=== PATIENT | female | born 1975 | race Hispanic/Latino ===

== ENCOUNTER 2019-10-16 00:37 | Emergency (ER) | payer SELFPAY ==
[~2019-10-16] VITALS: Ht 160 cm; Wt 83.9 kg
--- NOTE | 2019-10-16 01:13 | Emergency Department Note ---
History of Present Illnes History of Present Illness Chief Complaint: rash on legs History of Present Illness This is a 44 year old female, with a history of hyperlipidemia, hypothyroidism and depression who presents with the onset of petechiae of the bilateral lower extremities that she noticed last night at 5 PM. She denies any pain in the legs no pruritus no nausea, vomiting, fever, chills, dysuria, or abdominal pain. Patient denies any previous history of similar rash. The only new medication she has been taking his doxycycline 100 mg twice a day that she started on 09/21/2019, but is mainly been taking it once a day, therefore she is still taking the medication. She states that this was prescribe her [employer] after inflammation was found on a Pap smear. Patient denies taking any aspirin, Motrin, or other aspirin containing products. She denies any epistaxis, gingival bleeding, or excessively heavy menses. She has irregular periods. There is no personal or family history of bleeding disorders. Historian: Patient Arrival Mode: Car History limited by: language barrier Marketing Production Coordinator Required: Yes (Addy Chaves RN graciously translated) Onset (how long ago): hour(s) (8) Location: BLE on the anterior tibial area, and around ankles; Quality: not painful Radiation: Reports non-radiation Severity: mild Onset quality: sudden Duration (how long): hour(s) (8) Timing of current episode: constant Progression: unchanged Chronicity: new Context: Reports new medications (Doxycycline started on 09/21/2019, for "in flammaiton of the uterus. It was prescribed bid x 14 days, but she has been taking it daily.); Denies recent illness, Denies trauma/injury Relieving factors: none Exacerbating factors: none Associated symptoms: Reports denies other symptoms, Reports rash (see HPI); Denies chest pain, Denies cough, Denies fever/chills, Denies malaise, Denies nausea/vomiting, Denies shortness of breath (all) Treatments prior to arrival: none Risk factors: taking new antibiotic Past Medical/Family History Physician Review I have reviewed the patient's past medical and family history. Any updates have been documented here. Past Medical History Recent Fever: No Clinical Suspicion of Infectio: No New/Unexplained Change in Ment: No Past Medical History: Hypothyroidism, Depression, Hyperlipedemia Past Surgical History: None Social History Smoking Cessation: Never Smoker Alcohol Use: None Any Illegal Drug Use: No TB Exposure/Symptoms: No Physically hurt or threatened: No Family History Family history of heart diseas: No Other Any Pre-Existing Lines (PICC,: No Is patient up to date on immun: No Review of Systems Review of Systems Constitutional: Reports no symptoms; Denies chills, Denies fever Cardiovascular: Reports no symptoms Respiratory: Reports no symptoms Gastrointestinal: Reports no symptoms; Denies abdominal pain, Denies diarrhea, Denies nausea, Denies vomiting Genitourinary: Reports no symptoms Musculoskeletal: Reports no symptoms; Denies muscle pain, Denies muscle stiffness Integumentary: Reports rash (petechial rash on BLE) Neurological: Denies numbness, Denies paresthesia, Denies tingling Psychological: Reports no symptoms Hematological/Lymphatic: Reports no symptoms Review of other systems: All other systems negative Physical Exam Related Data Allergies: Coded Allergies: No Known Allergies (Unverified , 10/16/19) Vital signs reviewed: Yes Physical Exam CONSTITUTIONAL Constitutional: Present well-developed, Present well-nourished, Present obese HENT HENT: Present normocephalic, Present atraumatic, Present oropharynx clear/moist, Present nose normal; Absent nasal congestion, Absent rhinorrhea HENT L/R: Present left ext ear normal, Present right ext ear normal EYES Eyes: Reports PERRL, Reports conjunctivae normal NECK Neck: Present ROM normal, Present supple; Absent cervical adenopathy PULMONARY Pulmonary: Present effort normal, Present breath sounds normal CARDIOVASCULAR Cardiovascular: Present regular rhythm, Present heart sounds normal, Present capillary refill normal, Present normal rate; Absent murmur GASTROINTESTINAL Abdominal: Present soft, Present nontender, Present bowel sounds normal, Present other (no HSM) GENITOURINARY Genitourinary: Present exam deferred SKIN Skin: Present warm, Present dry, Present rash (Petechiae on BLE, primarily on bilateral anterior tibial area and around ankles.) MUSCULOSKELETAL Musculoskeletal: Present ROM normal NEUROLOGICAL Neurological: Present alert, Present oriented x 3 PSYCHOLOGICAL Psychological: Present mood/affect normal Results Laboratory Laboratory UA - neg except for avinash -small, blo - neg, pro - trace, marybel - tr; UPT - negative; CBC - nl, including normal platelets, no anemia; CMP - nl except for glucose = 125 mg/dl; Lab results reviewed: Yes Assessment & Plan Medical Decision Making MDM STOP taking the Doxycycline, as it may have caused a skin condition called "Vasculitis." - Take the Prednisone, as directed - Follow-up with your PCP, this week, regarding this rash, to see that it is improving. *You blood sugar was a bit high in the ED, and it is important that you limit your carbohydrate intake, especially while you are taking the Prednisone, as it can also increase your blood sugar. - Restrict intake of candy, sweets, juices, breads, pastas, potatoes and tortillas, as all of these increase your blood sugar. Assessment & Plan Final Impression: (1) Vasculitis limited to the skin, unspecified (2) Rash (3) Hyperlipidemia (4) Hypothyroidism Depart Disposition: HOME, SELF-jail Meds Active Scripts Prednisone (PREDNISONE) 20 Mg Tab, 20 MG PO DAILY for rash for 7 Days, #7 TAB 0 Refills Prov:GIANCARLO LINDSAY MD 10/16/19 GIANCARLO LINDSAY MD Oct 16, 2019 01:13
[2019-10-16] MEDS ORDERED: PREDNISONE20 MG PO (02:03)
[2019-10-16] MEDS ORDERED: PREDNISONE 20 MG TAB PO ONE (02:15)
[2019-10-16] MEDS ORDERED: PREDNISONE 20 MG TAB ONE (02:17)
== END 2019-10-16 02:45 | disposition home or self-care (01) ==
LOC: FSED 00:37
DX: L95.9 Vasculitis limited to the skin, unspecified (principal); E78.5 Hyperlipidemia, unspecified; E03.9 Hypothyroidism, unspecified; F32.9 Major depressive disorder, single episode, unspecified
CPT/HCPCS: 80053; 81003; 85025; 99283; J7512